=== PATIENT | male | born 1955 | race Caucasian/White ===

== ENCOUNTER → 2021-11-15 | Outpatient (CLI) | payer BC ==
--- NOTE | 2021-11-15 12:17 | RAD ---
XR FACIAL BONES COMPLETE 3+ VIEWS 11/15/2021 11:55 AM INDICATION: Fall, facial abrasions to the nasal region. COMPARISON: None available. TECHNIQUE: 4 views of the nasal bones are provided. FINDINGS/ IMPRESSION: No acute fracture of the nasal bones identified. Paranasal sinuses are well aerated. Skull base is in tact. Maxilla and mandible are intact. Zygoma appears intact. Osseous orbits are preserved. Electronically signed by: Jayne De La Vega MD (11/15/2021 12:15 PM) [facility]
== END ==
LOC: RAD 11:47
PROVIDERS: ATTEND Nurse Practitioner Family
DX: S09.93XA Unspecified injury of face, initial encounter (principal); W19.XXXA Unspecified fall, initial encounter; Y93.89 Activity, other specified; Y92.89 Other specified places as the place of occurrence of the external cause; Y99.8 Other external cause status
CPT/HCPCS: 70150